=== PATIENT | male | born 1965 | race Caucasian/White ===

== ENCOUNTER 2018-09-25 13:46 | Emergency (ER) | payer BC ==
[~2018-09-25] VITALS: Ht 182.9 cm; Wt 81.7 kg
[2018-09-25 13:49] VITALS: BP 149/92
[2018-09-25] MEDS ORDERED: NAPROSYN500 MG PO (13:52)
[2018-09-25 14:14] LABS: ABSOLUTE BASOPHILS 0.1 thou/uL (0.0-0.2); ABSOLUTE EOSINOPHILS 0.1 thou/uL (0.0-0.7); ABSOLUTE LYMPHOCYTES 1.4 thou/uL (0.8-5.3); ABSOLUTE MONOCYTES 0.5 thou/uL (0.0-1.2); ABSOLUTE NEUTROPHILS 2.6 thou/uL (1.6-8.1); BASOPHILS 1.1 %; EOSINOPHILS 2.3 %; HEMATOCRIT 44.2 % (42.0-52.0); HEMOGLOBIN 14.9 gm/dL (14.0-18.0); LYMPHOCYTES 30.5 %; MCH 31.6 pg (26.0-34.0); MCHC 33.6 g/dL (28.0-37.0); MONOCYTES 11.6 %; MPV 8.7 fl. (7.2-11.1); NUCLEATED RBCS 0 /100WBC; PLATELET COUNT* 184 thou/uL (150-400); POLYS 54.5 %; RDW-CV 12.5 % (10.5-14.5); WBC 4.7 thou/uL (4.0-11.0)
[2018-09-25 14:26] LABS: APTT 27.8 Seconds (25.0-31.3); INR 1.1; PROTIME 11.1 Seconds (9.20-11.50)
[2018-09-25 14:29] LABS: ANION GAP 8 mmol/L (7-16); BUN 27 mg/dL (7-18); CALCIUM 8.7 mg/dL (8.5-10.1); CHLORIDE 102 mmol/L (98-107); CO2 28 mmol/L (21-32); CREATININE 1.4 mg/dL (0.6-1.3); GLUCOSE 117 mg/dL (70-99); POTASSIUM 3.9 mmol/L (3.5-5.1); SODIUM 138 mmol/L (136-145)
[2018-09-25 14:42] LABS: ALBUMIN 3.8 g/dL (3.4-5.0); ALKALINE PHOSPHATASE 46 U/L (46-116); CK-MB MASS 1.8 ng/mL (<0.5-3.6); LIPASE 127 U/L (73-393); MAGNESIUM 1.9 mg/dL (1.8-2.4); NT-PRO BRAIN NAT PEPTIDE 76 pg/mL (<300); SGOT 28 U/L (15-37); SGPT 33 U/L (30-65); TOTAL BILIRUBIN 0.5 mg/dL (<0.1-1.0); TOTAL PROTEIN 6.6 g/dL (6.4-8.2); TROPONIN-I LEVEL <0.06 ng/mL (<0.06)
--- NOTE | 2018-09-26 16:06 | EKG ---
[place] [address] ELECTROCARDIOGRAM REPORT Name: DON DEL ANGEL [id number] Admission: 09/25/18 Attend Phys: Discharge: 09/25/18 Date of : 61 Report #: [id number] THIS REPORT FOR: //name// [facility] ED Test Date: 2018-09-25 Test Time: 13:52:22 Pat Name: DON DEL ANGEL Department: Room: Gender: M [employer]user: : 1965 Requested By: Tutu Winslow Order Number: [id number] MD: Dung Aj Measurements Intervals [place] Rate: 52 P: 58 PA: 177 QRS: 76 QRSD: 114 T: 36 QT: 434 QTc: 404 Interpretive Statements Sinus bradycardia Ventricular premature complex Borderline intraventricular conduction delay No previous ECG available for comparison Electronically Signed On 09-26-2018 16:05:51 CDT by Dung Aj [email or web address] <ELECTRONICALLY SIGNED> By: Dung Aj MD, [facility] 09/26/18 1605 1352 1352 Dung Aj MD, FACC /EPI
== END 2018-09-25 14:50 | disposition home or self-care (01) ==
LOC: M.ERS 13:46
PROVIDERS: Family Medicine
DX: R55 Syncope and collapse (principal); R42 Dizziness and giddiness